=== PATIENT | male | born 1960 | race Caucasian/White ===

== ENCOUNTER 2020-07-24 06:48 | Day surgery (SDC) | payer BC ==
[2020-07-20 11:28] LABS: BASOPHILS % (AUTO) 0.3 % (0-1); EOSINOPHILS # (AUTO) 0.1 X10'3 (0-0.9); EOSINOPHILS % (AUTO) 0.8 % (0-6); LYMPHOCYTES # (AUTO) 2.5 X10'3 (1.1-4.8); LYMPHOCYTES % (AUTO) 30.6 % (21-51); MEAN CORPUSCULAR HEMOGLOBIN 33.6 PG (27.0-31.0); MEAN CORPUSCULAR HGB CONC 34.3 g/dL (33.0-36.5); MEAN CORPUSCULAR VOLUME 97.9 FL (78-98); MEAN PLATELET VOLUME 8.7 FL (7.4-10.4); MONOCYTES # (AUTO) 0.7 X10'3 (0-0.9); MONOCYTES % (AUTO) 8.6 % (2-12); NEUTROPHILS # (AUTO) 4.9 X10'3 (1.8-7.7); NEUTROPHILS % (AUTO) 59.7 % (42-75); PRE OP HEMATOCRIT 49.8 % (42.0-52.0); PRE OP HEMOGLOBIN 17.1 g/dL (14.0-17.9); PRE OP PLATELET COUNT 185 X10'3 (140-440); RED BLOOD COUNT 5.09 X10'6 (4.70-6.10); RED CELL DISTRIBUTION WIDTH 12.5 % (11.5-14.5)
[2020-07-20 11:44] LABS: ALBUMIN 3.9 G/DL (3.4-5.0); ALKALINE PHOSPHATASE 56 IU/L (46-116); BLOOD UREA NITROGEN 10 MG/DL (7-18); BUN/CREATININE RATIO 10.5 (5.4-32.0); CALCIUM 8.9 MG/DL (8.5-10.1); CHLORIDE 103 MMOL/L (99-107); CREATININE 0.95 MG/DL (0.60-1.10); PRE OP ALT 28 U/L (30-65); PRE OP ANION GAP 9 (8-16); PRE OP AST 21 U/L (10-37); PRE OP BILIRUB, TOTAL 0.6 MG/DL (0.0-1.0); PRE OP GLUCOSE 85 MG/DL (70-104); PRE OP SODIUM 141 MMOL/L (135-145); TOTAL CARBON DIOXIDE 29.1 MMOL/L (24-32); TOTAL PROTEIN 7.7 G/DL (6.4-8.2); eGFR 81 ML/MIN
[2020-07-20 11:46] LABS: PRE OP POTASSIUM 3.7 MMOL/L (3.4-5.1)
[~2020-07-24] VITALS: Ht 170.2 cm; Wt 91.6 kg
[~2020-07-24 06:48] MED LIST: ATOR10TA87 PO; BUPIVAcaine/PF 2.5mg/ml (0.25%) 10ml vial ONE; HCTZ25T PO; LOSA25TA96 PO; METF500T PO; clindamycin-Cleocin 900mg/D5W 50 ML IV ONE; famotidine 20mg tablet PO ONE; ringers solution, lacted 1,000 ML IV SCH
[2020-07-24 06:50] VITALS: BP 136/89
[2020-07-24] MEDS ORDERED: midazolam 2 mg/2 ml injection ONE ×2 (09:46→10:21)
[2020-07-24] MEDS ORDERED: fentaNYL /PF 50mcg/ml 5ml ampule ONE (09:46)
[2020-07-24] MEDS ORDERED: BUPIVAcaine/PF 2.5mg/ml (0.25%) 10ml vial ONE (09:56)
[2020-07-24] MEDS ORDERED: LIDOcaine 0.5% (5mg/ml) 50ml vial ONE (10:08)
[2020-07-24 10:39] VITALS: BP 133/86
--- NOTE | 2020-07-24 10:39 | NUR ---
ARRIVED IN PACU VIA GURNEY FROM OR WITH DR OSBORNE IN ATTENDANCE. REPORT RECEIVED. VS STABLE. AWAKE AND ALERT
[2020-07-24 10:49] VITALS: BP 128/89
[2020-07-24 10:58] VITALS: BP 125/85
--- NOTE | 2020-07-24 11:14 | NUR ---
AWAKE, UP STEADY ON FEET. DRESSED WITH LITTLE ASSISTANCE. REVIEWED DISCHARGE WITH PT. TO CAR ASSISTED BY NURSE WITHOUT INCIDENT
== END 2020-07-24 11:14 | disposition home or self-care (01) ==
LOC: PAS 06:48
PROVIDERS: ATTEND Orthopaedic Surgery Hand Surgery
DX: G56.02 Carpal tunnel syndrome, left upper limb (principal); G56.22 Lesion of ulnar nerve, left upper limb; I10 Essential (primary) hypertension; R29.898 Other symptoms and signs involving the musculoskeletal system; Z20.828 Contact with and (suspected) exposure to other viral communicable diseases; Z79.899 Other long term (current) drug therapy; Z72.89 Other problems related to lifestyle
CPT/HCPCS: 36415; 64718; 64721; 80053; 82948; 85025; 87635; 93005; A6222; J2001; J2250; J3010; J3490; A4215; A6449; A7000; J7120

== ENCOUNTER 2023-01-27 12:29 | Emergency (ER) | payer BC ==
[~2023-01-27] VITALS: Ht 170.2 cm; Wt 76.8 kg
[~2023-01-27 12:29] MED LIST changes: -BUPIVAcaine/PF 2.5mg/ml (0.25%) 10ml vial ONE; -HCTZ25T PO; +HYDR25TA5 PO; -clindamycin-Cleocin 900mg/D5W 50 ML IV ONE; -famotidine 20mg tablet PO ONE; -ringers solution, lacted 1,000 ML IV SCH
[2023-01-27 12:53] VITALS: BP 134/88
--- NOTE | 2023-01-27 13:16 | NUR ---
IR team at bedside.
[2023-01-27] MEDS ORDERED: iohexol 300mg/ml 100ml inj. ONE (13:41)
--- NOTE | 2023-01-27 14:00 | NUR ---
IR called to patient's bedside due to gtube which had fallen out at home. Tract intact. 18F 2.5 [place] G Tube placed. KUB taken and reviewed by Dr. Mcguire. Loy button tubes and booklet sent with . Patient stable and report given to bedside RN
== END 2023-01-27 13:51 | disposition home or self-care (01) ==
LOC: ER 12:30
DX: K94.20 Gastrostomy complication, unspecified (principal); Z88.0 Allergy status to penicillin; Z79.899 Other long term (current) drug therapy; Z79.1 Long term (current) use of non-steroidal anti-inflammatories (NSAID); Z79.2 Long term (current) use of antibiotics
CPT/HCPCS: 43762; 74018; 99284; Q9967

== ENCOUNTER 2023-05-10 12:17 | Day surgery (SDC) | payer BC ==
[~2023-05-10] VITALS: Ht 170.2 cm; Wt 79.8 kg
[2023-05-10 12:30] VITALS: BP 148/82
--- NOTE | 2023-05-10 12:30 | NUR ---
has POA and signed the consent.
--- NOTE | 2023-05-10 12:30 | NUR ---
Pt unable to lay back in bed, pt is very anxious and short of breath. Pt struggling to breath but o2 sats are WNL. Pt has bipap from home. Pt placed in bed with HOB at 90 degrees but pt swung his legs to edge of bed. Pt transported back to wheelchair for procedure per Dr. Manzo request.
[2023-05-10] MEDS ORDERED: EDAR105O GT (12:51)
[2023-05-10] MEDS ORDERED: ATI1T PO (12:51)
[2023-05-10] MEDS ORDERED: GLYC1TAB23 PO (12:51)
[2023-05-10] MEDS ORDERED: SCOP1PAT11 TD (12:51)
[2023-05-10] MEDS ORDERED: PROP20TA6 PO (12:51)
[2023-05-10] MEDS ORDERED: [UNRECOGNIZED DRUG - CODE] GT (12:51)
[2023-05-10 13:00] VITALS: BP 155/85
== END 2023-05-10 13:05 | disposition home or self-care (01) ==
LOC: SSTAY O 12:17
PROVIDERS: ATTEND Radiology Diagnostic Radiology
DX: Z43.1 Encounter for attention to gastrostomy (principal); G12.21 Amyotrophic lateral sclerosis; Z88.0 Allergy status to penicillin; Z79.899 Other long term (current) drug therapy
CPT/HCPCS: 43762; 74018; B4087